=== PATIENT | female | born 1975 | race American Indian/Alaskan Native ===

== ENCOUNTER 2016-10-23 03:32 | Inpatient (IN) | payer OTHER ==
[2016-10-23 05:05] LABS: Mean Corpuscular HGB Conc 28 % (30-34); Platelet Count 806 K/mm3 (140-440); Red Blood Count 3.09 M/mm3 (3.65-5.03); White Blood Count 15.9 K/mm3 (4.5-11.0)
[2016-10-23 05:06] LABS: Mean Corpuscular Hemoglobin 17 pg (28-32); Mean Corpuscular Volume 60 fl (79-97); Red Cell Distribution Width 29.7 % (13.2-15.2)
[2016-10-23 05:11] LABS: Hematocrit 18.7 % (30.3-42.9); Hemoglobin 5.1 gm/dl (10.1-14.3)
[2016-10-23 05:26] LABS: Anion Gap 24 mmol/L; Blood Urea Nitrogen 14 mg/dL (7-17); Calcium 8.7 mg/dL (8.4-10.2); Carbon Dioxide 20 mmol/L (22-30); Chloride 95.4 mmol/L (98-107); Glucose 130 mg/dL (65-100); Potassium 3.5 mmol/L (3.6-5.0); Sodium 136 mmol/L (137-145)
[2016-10-23 06:43] LABS: Basophils % (Manual) 0 % (0.0-1.8); Blastocytes % (Manual) 0 %; Eosinophils % (Manual) 0 % (0.0-4.3); Hypochromasia 3+; Microcytosis 2+
[2016-10-23 06:44] LABS: Anisocytosis 3+; Elliptocytes Rare; Polychromasia Few; Stomatocytes Few
[2016-10-23 06:45] LABS: Diff Status Complete; Platelet Estimate Appears Increased
[2016-10-23] MEDS ORDERED: NACL 0.9% 1000 ML 1,000 ML IV ONE (08:48)
[2016-10-23] MEDS ORDERED: NACL 0.9% 500 ML 500 ML IV ONE (08:48)
--- NOTE | 2016-10-23 08:50 | Emergency Department Report ---
HPI - General Chief Complaint: Abdominal Pain Time Seen by Provider: 10/23/16 08:38 - HPI HPI: The patient is a 41-year-old female with a history of uterine fibroids and menorrhagia, who presents for evaluation of abdominal pain and generalized weakness. The patient reports severe lower abdominal pain, 10 out of 10 in severity, cramping and sharp in quality, for the past 4 days, worsening and constant since this morning, and associated with a days of vaginal bleeding. She typically has prolonged menstrual periods. She also says that she has experienced moderate to severe weakness and tiredness, exacerbated with exertion , improved with rest, also for the past week. The patient denies fever, cough, dyspnea, syncope, chest pain, hemoptysis, hematemesis, hematuria, blood in the stool, unilateral leg swelling, recent immobilization, history of DVT or PE. ED Past Medical Hx - Medications Home Medications: Home Medications Medication Instructions Recorded Confirmed Last Taken Type No Known Home Medications [No 10/23/16 10/23/16 Unknown History Reported Home Medications] ED Review of Systems ROS: Stated complaint: ABD PAIN/MENSTRUAL PAIN Other details as noted in HPI Constitutional: denies: fever ENT: denies: throat or neck pain Respiratory: denies: cough, shortness of breath Cardiovascular: denies: chest pain Endocrine: denies unexplained weight loss or gain Gastrointestinal: reports abdominal pain Genitourinary: Reports vaginal bleeding denies: dysuria Musculoskeletal: denies: leg swelling Skin: denies: rash Neurological: denies: headache Hematological/Lymphatic: denies: easy bleeding or easy bruising Psych: denies sadness or hopelessness Physical Exam - Physical Exam Vital Signs: Vital Signs 10/23/16 04:42 Temperature 98.5 F Pulse Rate 86 Respiratory 24 Rate Blood Pressure 153/94 O2 Sat by Pulse 98 Oximetry Physical Exam: General: well-nourished, well-developed, no acute distress Head: Normocephalic, atraumatic Eyes: normal sclera ENT: Mucous membranes are pink and moist Neck: trachea midline, neck supple, No neck stiffness, no cervical adenopathy Respiratory: Breath sounds equal bilaterally, no wheezing, rales, or rhonchi Cardio: S1 and S2 present, no murmurs, rubs, gallops, capillary refill is brisk Abdomen: Normoactive bowel sounds, soft abdomen, periumbilical and suprapubic tenderness to palpation present, no rigidity, no guarding or rebound tenderness Musc: No pitting edema Skin: No rash Neuro: no facial drooping, normal speech Psych: Normal affect ED Course Vital Signs 10/23/16 04:42 Temperature 98.5 F Pulse Rate 86 Respiratory 24 Rate Blood Pressure 153/94 O2 Sat by Pulse 98 Oximetry ED Medical Decision Making - Lab Data Result diagrams: 10/23/16 04:44 10/23/16 04:44 - Medical Decision Making The patient was seen and examined by myself. The patient is placed on a cardiac exercise specialist and continuous pulse ox. On initial evaluation, the patient was found to be in no distress. Evaluation orders were placed. The patient is given 1 L normal saline fluid bolus and IV fentanyl for pain. Lab results revealed low hemoglobin of 5.1, low hematocrit, and otherwise lab results are grossly not concerning. 2 units of PRBCs are ordered. The on-call hospitalist service was contacted. They agreed to admit the patient for further treatment and close monitoring. The ED admit order was placed. The patient was admitted in guarded condition. Critical care attestation.: If time is entered above; I have spent that time in minutes in the direct care of this critically ill patient, excluding procedure time. ED Disposition Clinical Impression: Anemia requiring transfusions, Severe anemia, Generalized weakness Disposition: OP ADMITTED IP TO THIS HOSP Is pt being admited?: Yes Does the pt Need Aspirin: No (bleeding and anemia) Condition: Serious Time of Disposition: 08:50
--- NOTE | 2016-10-23 08:58 | Admit Criteria Form ---
Admission Criteria Documentation: ANEMIA, IRON DEFICIENCY OR UNSPECIFIED Clinical Indications for Inpatient Care (Place 'X' for any and all applicable criteria): Admission is indicated for ANY ONE of the following(1)(2)(3)(4)(5)(6)(7): [X] I. Inpatient admission required rather than observation care (Also use Anemia, Iron Deficiency or Unspecified: Observation Care guideline as appropriate) because of ANY ONE of the following: [] a) Hemodynamic instability that is severe or persistent [] b) Active bleeding that cannot be rapidly controlled [] c) CVS symptoms (i.e., dyspnea, chest pain, heart failure) that are severe or persistent [] d) Neurologic symptoms (i.e., cognitive impairment, recurrent syncope or near syncope) that are severe or persistent [] e) Cardiac arrhythmias of immediate concern [] f) Acute peripheral ischemia (e.g., pulseless, cool, mottled, or cyanotic extremity) [] g) High-risk low platelet count [] h) Acute renal failure [X] i) Ongoing transfusion for blood loss (greater than 2 units) [] j) IV fluid to replace significant ongoing (eg, >24 hours) losses (> 3 L/m2 per day) [] k) Pulmonary artery catheter monitoring [] l) Supplemental oxygen or respiratory treatments for over 24 hours that are performable only in acute inpatient setting [] m) Immediate inpatient surgery [] n) Other condition, treatment or monitoring requiring inpatient admission [] II Active massive hemorrhage [] III. Active hemolysis with rapidly progressive anemia [A](6) Extended stay beyond goal length of stay may be needed for (17)(18) []a) Diagnosed cause of anemia requiring longer hospitalization (eg, active GI bleeding, immune hemolysis requiring electrophoresis, complications of malignancy requiring acute care []b) Continued emergent anemia indicators (23) []c) Transfusion reactions []d) Associated leukopenia or thrombocytopenia needing inpatient care []e) Active comorbidities (eg, renal failure, heart failure) The original [facility] Care Guidelines content created by [facility] Care Guidelines has been revised. The portions of the content which have been revised are identified through the use of italic text or in bold. [facility] Guidelines has neither reviewed nor approved the modified material. All other unmodified content is copyright [facility] Care Guidelines. Please see references footnoted in the original [facility] edition 2016 Admission Criteria Met: Yes
[2016-10-23] MEDS ORDERED: SUBLIMAZE IV ONE (09:43)
[2016-10-23 10:00] LABS: Bilirubin,Urine NEG (Negative); Blood,Urine NEG (Negative); Ketones,Urine NEG (Negative); Leukocyte Esterase,Urine NEG (Negative); Nitrite,Urine NEG (Negative); Protein,Urine <15 mg/dL mg/dL (Negative); RBC,Urine < 1.0 /HPF (0.0-6.0); Urobilinogen,Urine < 2.0 mg/dL (<2.0); WBC,Urine < 1.0 /HPF (0.0-6.0)
--- NOTE | 2016-10-23 10:02 | History and Physical Report ---
History of Present Illness Date of examination: 10/23/16 History of present illness: patient presents with heavy periods. has history of fibroids. Past History Past Medical History: other (obesity, uterine fibroids) Past Surgical History: Medications and Allergies Allergies Allergy/AdvReac Type Severity Reaction Status Date / Time No Known Allergies Allergy Unverified 10/23/16 03:56 Home Medications Medication Instructions Recorded Confirmed Last Taken Type No Known Home Medications [No 10/23/16 10/23/16 Unknown History Reported Home Medications] Exam - Constitutional Vitals: Temp Pulse Resp BP Pulse Ox 98.5 F 85 15 185/91 100 10/23/16 04:42 10/23/16 09:30 10/23/16 09:30 10/23/16 09:30 10/23/16 09:30 Results - Labs CBC & Chem 7: 10/24/16 05:49 10/24/16 05:49 Labs: Abnormal lab results 10/23/16 10/23/16 10/23/16 Range/Units 04:44 04:44 07:54 WBC 15.9 H (4.5-11.0) K/mm3 RBC 3.09 L (3.65-5.03) M/mm3 Hgb 5.1 L* (10.1-14.3) gm/dl Hct 18.7 L* (30.3-42.9) % MCV 60 L (79-97) fl MCH 17 L (28-32) pg MCHC 28 L (30-34) % RDW 29.7 H (13.2-15.2) % Plt Count 806 H (140-440) K/mm3 Seg Neuts % (Manual) 79.0 H (40.0-70.0) % Lymphocytes % (Manual) 13.0 L (13.4-35.0) % Monocytes % (Manual) 8.0 H (0.0-7.3) % Nucleated RBC % 3.0 H (0.0-0.9) % Seg Neutrophils # Man 12.6 H (1.8-7.7) K/mm3 Monocytes # (Manual) 1.3 H (0.0-0.8) K/mm3 Sodium 136 L (137-145) mmol/L Potassium 3.5 L (3.6-5.0) mmol/L Chloride 95.4 L (98-107) mmol/L Carbon Dioxide 20 L (22-30) mmol/L Glucose 130 H (65-100) mg/dL Crossmatch See Detail Assessment and Plan Severe anemia due to acute and chronic blood loss from fibroids. Admit. Transfuse PRBC
[2016-10-23] MEDS ORDERED: ZOFRAN IV ONE (10:10)
[2016-10-23] MEDS ORDERED: ZOFRAN ONE (10:11)
[2016-10-23] MEDS ORDERED: ZOFRAN IV PRN (10:16)
[2016-10-23] MEDS ORDERED: DULCOLAX PR PRN (10:16)
[2016-10-23] MEDS ORDERED: TYLENOL PO PRN (10:16)
[2016-10-23] MEDS ORDERED: MILK OF MAGNESIA PO PRN (10:16)
[2016-10-23 10:47] LABS: INR 1.07 (0.87-1.13)
[2016-10-23 10:48] LABS: Partial Thromboplastin Time 22.3 Sec. (24.2-36.6)
[2016-10-23 11:24] LABS: Alanine Aminotransferase 6 units/L (7-56); Albumin 3.5 g/dL (3.9-5); Albumin/Globulin Ratio 0.9 %; Alkaline Phosphatase 59 units/L (35-129); Bilirubin,Direct < 0.2 mg/dL (0-0.2); Bilirubin,Total 0.2 mg/dL (0.1-1.2); Total Protein 7.2 g/dL (6.3-8.2)
--- NOTE | 2016-10-23 13:24 | XRay Report ---
Portable abdominal series: The the lungs are clear. The heart is difficult to assess but could be slightly enlarged. There is no vascular congestion. The right flank is incompletely included on the study. The visualized bowel gas pattern is unremarkable. There is no free air. There is no soft tissue mass or abnormal soft tissue calcification appreciated. Impression: Limited quality study with no abnormality noted.
[2016-10-23] MEDS: MORPHINE IV PRN (19:08)
[2016-10-23 20:32] LABS: Hemoglobin 6.8 gm/dl (10.1-14.3)
[2016-10-23 20:33] LABS: Hematocrit 22.4 % (30.3-42.9)
[2016-10-24] MEDS: MORPHINE IV PRN ×2 (01:25→09:22)
[2016-10-24 06:26] LABS: Hematocrit 22.7 % (30.3-42.9); Hemoglobin 6.8 gm/dl (10.1-14.3); Mean Corpuscular HGB Conc 30 % (30-34); Platelet Count 589 K/mm3 (140-440); Red Blood Count 3.45 M/mm3 (3.65-5.03); White Blood Count 9.5 K/mm3 (4.5-11.0)
[2016-10-24 06:28] LABS: Blood Urea Nitrogen 10 mg/dL (7-17); Calcium 8.2 mg/dL (8.4-10.2); Carbon Dioxide 26 mmol/L (22-30); Chloride 101.8 mmol/L (98-107); Glucose 102 mg/dL (65-100); Potassium 4.1 mmol/L (3.6-5.0); Sodium 139 mmol/L (137-145)
[2016-10-24 06:29] LABS: Anion Gap 15 mmol/L
[2016-10-24 06:35] LABS: Mean Corpuscular Hemoglobin 20 pg (28-32); Red Cell Distribution Width 29.8 % (13.2-15.2)
[2016-10-24 06:36] LABS: Mean Corpuscular Volume 66 fl (79-97)
[2016-10-24] MEDS ORDERED: NACL 0.9% 500 ML IV STA (07:41)
[2016-10-24] MEDS ORDERED: NACL 0.9% 250ML 250 ML ONE (07:46)
[2016-10-24 09:12] LABS: Anisocytosis 3+; Basophils % (Manual) 0 % (0.0-1.8); Blastocytes % (Manual) 0 %; Hypochromasia 3+; Microcytosis 2+; Polychromasia Few
[2016-10-24 09:13] LABS: Diff Status Complete; Elliptocytes Rare; Platelet Estimate Appears Increased; Stomatocytes Few
[2016-10-24] MEDS: NACL 0.9% 500 ML 500 ML IV ONE ×2 (09:23→09:24)
[2016-10-24 14:37] VITALS: BP 167/77
--- NOTE | 2016-10-24 16:23 | Discharge Summary ---
Providers - Providers Date of Admission: 10/23/16 10:16 Date of discharge: 10/24/16 Attending physician: JONATHAN WITT 10/24/16 08:32 Consult to Physician [CONS] Routine Consulting Provider: MEL SKAGGS Reason For Exam: menometrorrhagia,fibroids Place consult to:: Dr. Paul Skaggs Primary care physician: CONCRETE ENGINEERING TECHNICIAN Hospitalization Condition: Good Disposition: DISCHARGED TO HOME OR SELFCARE - Discharge Diagnoses (1) Severe anemia Status: Acute (2) Abnormal uterine bleeding Status: Acute (3) Uterine fibroid Status: Acute (4) Menometrorrhagia Status: Acute (5) Anemia due to acute blood loss Status: Acute Core Measure Documentation - Palliative Care Palliative Care/ Comfort Measures: Not Applicable - Core Measures Any of the following diagnoses?: none Exam - Constitutional Vitals: Temp Pulse Resp BP Pulse Ox 99.1 F 82 20 167/77 98 10/24/16 14:32 10/24/16 14:32 10/24/16 14:32 10/24/16 14:32 10/24/16 07:35 Plan Activity: no restrictions Diet: low fat, low cholesterol, low salt Additional Instructions: 1. Follow-up with primary care physician in one week. 2. Follow-up with Dr. Mel Skaggs in 3-5 days Follow up with: PRIMARY CARE, [Primary Care Provider] - 3-5 Days Prescriptions: Docusate Sodium [Colace] 100 mg PO BID #60 capsule Ferrous Sulfate [Feosol 325 MG tab] 325 mg PO BID #60 tablet
[2016-10-24 17:57] LABS: Hematocrit 28.1 % (30.3-42.9); Hemoglobin 8.7 gm/dl (10.1-14.3); Mean Corpuscular HGB Conc 31 % (30-34); Mean Corpuscular Volume 69 fl (79-97); Platelet Count 536 K/mm3 (140-440); Red Blood Count 4.05 M/mm3 (3.65-5.03); White Blood Count 10.1 K/mm3 (4.5-11.0)
[2016-10-24 17:58] LABS: Mean Corpuscular Hemoglobin 21 pg (28-32); Red Cell Distribution Width 29.1 % (13.2-15.2)
[2016-10-24 19:07] LABS: Basophils % (Manual) 0 % (0.0-1.8); Blastocytes % (Manual) 0 %
[2016-10-24 19:08] LABS: Anisocytosis 3+; Diff Status Complete; Hypochromasia 2+; Microcytosis 1+; Platelet Estimate Consistent w Auto
== END 2016-10-24 18:45 | disposition home or self-care (01) | DRG 760 ==
LOC: ED 03:32 → 3A 10:16
PROVIDERS: ADMIT Internal Medicine; ATTEND Internal Medicine
PROC: 30233N1 Transfusion of Nonautologous Red Blood Cells into Peripheral Vein, Percutaneous Approach (ICD-10-PCS; principal; 2016-10-23)
PROC: 30233N1 Transfusion of Nonautologous Red Blood Cells into Peripheral Vein, Percutaneous Approach (ICD-10-PCS; 2016-10-24)
DX: D25.9 Leiomyoma of uterus, unspecified (principal); D62 Acute posthemorrhagic anemia; Z68.42 Body mass index [BMI] 45.0-49.9, adult; E66.9 Obesity, unspecified; N92.1 Excessive and frequent menstruation with irregular cycle; Z98.890 Other specified postprocedural states
CPT/HCPCS: 36415; 74022; 80048; 80074; 81001; 81025; 83690; 85007; 85014; 85018; 85025; 85610; 85730; 86850; 86900; 86901; 86920; 96374; 96375; J2270; J2405; J3010; J7040; J7050; P9016

== ENCOUNTER 2017-01-14 12:20 | Inpatient (IN) | payer OTHER ==
[2017-01-14 13:18] LABS: Mean Corpuscular HGB Conc 29 % (30-34); Mean Corpuscular Volume 70 fl (79-97); Platelet Count 600 K/mm3 (140-440); Red Blood Count 3.97 M/mm3 (3.65-5.03); White Blood Count 12.1 K/mm3 (4.5-11.0)
[2017-01-14 13:22] LABS: Hematocrit 27.9 % (30.3-42.9); Hemoglobin 8.1 gm/dl (10.1-14.3); Mean Corpuscular Hemoglobin 21 pg (28-32); Red Cell Distribution Width 27.7 % (13.2-15.2)
[2017-01-14 13:29] LABS: Anion Gap 21 mmol/L; BUN/Creatinine Ratio 14.28; Blood Urea Nitrogen 10 mg/dL (7-17); Calcium 8.9 mg/dL (8.4-10.2); Carbon Dioxide 20 mmol/L (22-30); Chloride 100.7 mmol/L (98-107); Glucose 121 mg/dL (65-100); Lipase 23 units/L (13-60); Potassium 3.9 mmol/L (3.6-5.0); Sodium 138 mmol/L (137-145)
[2017-01-14 13:56] LABS: Anisocytosis 2+; Basophils % (Manual) 0 % (0.0-1.8); Blastocytes % (Manual) 0 %; Elliptocytes Few; Hypochromasia 2+; Microcytosis 1+; Ovalocytes 1+; Poikilocytosis 1+; Spherocytes 1+; Tear Drop Cells Rare
[2017-01-14 13:57] LABS: Diff Status Complete; Platelet Estimate Appears Increased
[2017-01-14] MEDS ORDERED: DILAUDID IV ONE (16:38)
[2017-01-14] MEDS ORDERED: ZOFRAN IV ONE ×2 (16:38→17:53)
[2017-01-14] MEDS ORDERED: TORADOL IV ONE (16:38)
--- NOTE | 2017-01-14 16:44 | Emergency Department Report ---
ED Female HPI - General Chief complaint: Abdominal Pain Stated complaint: ANEMIA/VAG BLEEDING/WEAK Time Seen by Provider: 01/14/17 16:10 Source: patient, old records reviewed Mode of arrival: Wheelchair Limitations: No Limitations - History of Present Illness Initial comments: 41-year-old female with a past medical history uterine fibroids and menorrhagia , iron deficiency anemia, previous blood transfusions, and hypertension presents to the hospital complaining of vaginal bleeding. Patient started bleeding yesterday. She states she's had to use at least 3 pads per hour. Please have a 9/10 and intermittent suprapubic abdominal pain described as labor pains. No aggravating or alleviating factors reported. Patient is having dyspnea on exertion, lightheadedness, and dizziness similar to what she required blood transfusion in the past. Patient has been admitted here in October and November for menorrhagia and anemia requiring blood transfusions. Hysterectomy has been recommended by her [employer]ARK[employer] doctor Dr. Tom Skaggs. Pt is taking iron tablets once daily but states she has run out. She was not able to tolerate BID dosing. - Related Data Previous Rx's Medication Instructions Recorded Last Taken Type Docusate Sodium [Colace] 100 mg PO BID #60 capsule 10/24/16 Unknown Rx Ferrous Sulfate [Feosol 325 MG tab] 325 mg PO BID #60 tablet 10/24/16 Unknown Rx Hydrochlorothiazide [HCTZ] 25 mg PO QDAY #30 tablet 12/05/16 Unknown Rx Allergies Allergy/AdvReac Type Severity Reaction Status Date / Time No Known Allergies Allergy Unverified 10/23/16 03:56 ED Review of Systems ROS: Stated complaint: ANEMIA/VAG BLEEDING/WEAK Other details as noted in HPI Comment: All other systems reviewed and negative Other: Constitutional: No fevers chills Eyes: No eye pain visual changes ENT: No ear pain or throat pain Neck: Denies pain Respiratory: Denies cough wheezing Cardiovascular: Denies chest pain, palpitations GI: Denies abdominal pain, nausea, vomiting, diarrhea : Denies dysuria Musculoskeletal: Denies back pain Skin: Denies rash, lesions, erythema Neurologic: Denies numbness Psychiatric: Denies suicidal ideation, hallucinations ED Past Medical Hx - Past Medical History Hx Hypertension: Yes Hx CVA: No Hx Congestive Heart Failure: No Hx Diabetes: No Hx Asthma: No Hx COPD: No Hx HIV: No Additional medical history: uterine fibroids, uterine cysts. anemia - Surgical History Additional Surgical History: x 3 - Social History Smoking Status: Never Smoker Substance Use Type: Alcohol - Medications Home Medications: Home Medications Medication Instructions Recorded Confirmed Last Taken Type Docusate Sodium [Colace] 100 mg PO BID #60 capsule 10/24/16 01/14/17 Unknown Rx Ferrous Sulfate [Feosol 325 MG tab] 325 mg PO BID #60 tablet 10/24/16 01/14/17 Unknown Rx Hydrochlorothiazide [HCTZ] 25 mg PO QDAY #30 tablet 12/05/16 01/14/17 Unknown Rx ED Physical Exam - General Limitations: No Limitations - Other Other exam information: General: No limitations, patient is alert in no acute distress Head exam: Atraumatic, normocephalic Eyes exam: Normal appearance ENT: Moist mucous membrane, normal oropharynx Neck exam: Normal inspection, full range of motion, Respiratory exam: Clear to auscultation bilateral, no wheezes, rales, crackles Cardiovascular: Normal rate and rhythm, normal heart sounds Abdomen: Soft, nondistended, and nontender, with normal bowel sounds, no rebound, or guarding Extremity: Full range of motion normal inspection no deformity Back: Normal Inspection, full range of motion, no tenderness Neurologic: Alert, oriented x3, cranial nerves intact, no motor or sensory deficit Psychiatric: normal affect, normal mood Skin: Warm, dry, intact ED Course Vital Signs 01/14/17 01/14/17 01/14/17 12:31 15:30 15:31 Temperature 98.8 F 98.1 F Pulse Rate 95 H 85 Respiratory 22 16 16 Rate Blood Pressure 134/85 Blood Pressure 134/75 [Right] O2 Sat by Pulse 100 98 100 Oximetry 01/14/17 01/14/17 01/14/17 18:06 19:29 21:15 Temperature 98 F 98 F Pulse Rate 80 88 Respiratory 18 20 18 Rate Blood Pressure Blood Pressure 143/73 168/98 132/77 [Right] O2 Sat by Pulse 100 100 Oximetry - Reevaluation(s) Reevaluation #1: 01/14/17 17:35 Pt given Dilaudid, Toradol, and Zofran for pain 01/14/17 17:35 Reevaluation #2: 01/14/17 18:27 Patient develop nausea, hot feeling, and sweating after Dilaudid. Vital signs repeated and unremarkable Additional Zofran ordered. - Consultations Consultation #1: 01/14/17 17:[address] Tom Skaggs. He has agreed to admit the patient for blood transfusion ED Medical Decision Making - Lab Data Result diagrams: 01/14/17 12:56 01/14/17 12:56 Lab Results 01/14/17 01/14/17 01/14/17 Range/Units 12:56 12:56 12:56 WBC 12.1 H (4.5-11.0) K/mm3 RBC 3.97 (3.65-5.03) M/mm3 Hgb 8.1 L (10.1-14.3) gm/dl Hct 27.9 L (30.3-42.9) % MCV 70 L (79-97) fl MCH 21 L (28-32) pg MCHC 29 L (30-34) % RDW 27.7 H (13.2-15.2) % Plt Count 600 H (140-440) K/mm3 Add Manual Diff Complete Total Counted 100 Seg Neuts % (Manual) 76.0 H (40.0-70.0) % Band Neutrophils % 1.0 % Lymphocytes % (Manual) 17.0 (13.4-35.0) % Reactive Lymphs % (Man) 0 % Monocytes % (Manual) 5.0 (0.0-7.3) % Eosinophils % (Manual) 1.0 (0.0-4.3) % Basophils % (Manual) 0 (0.0-1.8) % Metamyelocytes % 0 % Myelocytes % 0 % Promyelocytes % 0 % Blast Cells % 0 % Nucleated RBC % Not Reportable Seg Neutrophils # Man 9.2 H (1.8-7.7) K/mm3 Band Neutrophils # 0.1 K/mm3 Lymphocytes # (Manual) 2.1 (1.2-5.4) K/mm3 Abs React Lymphs (Man) 0.0 K/mm3 Monocytes # (Manual) 0.6 (0.0-0.8) K/mm3 Eosinophils # (Manual) 0.1 (0.0-0.4) K/mm3 Basophils # (Manual) 0.0 (0.0-0.1) K/mm3 Metamyelocytes # 0.0 K/mm3 Myelocytes # 0.0 K/mm3 Promyelocytes # 0.0 K/mm3 Blast Cells # 0.0 K/mm3 WBC Morphology Not Reportable Hypersegmented Neuts Not Reportable Hyposegmented Neuts Not Reportable Hypogranular Neuts Not Reportable Smudge Cells Not Reportable Toxic Granulation Not Reportable Toxic Vacuolation Not Reportable Dohle Bodies Not Reportable Pelger-Huet Anomaly Not Reportable Jefry Rods Not Reportable Platelet Estimate Appears increased Clumped Platelets Not Reportable Plt Clumps, EDTA Not Reportable Large Platelets Not Reportable Giant Platelets Not Reportable Platelet Satelliting Not Reportable Plt Morphology Comment Not Reportable RBC Morphology Not Reportable Dimorphic RBCs Yes Polychromasia Not Reportable Hypochromasia 2+ Poikilocytosis 1+ Anisocytosis 2+ Microcytosis 1+ Macrocytosis Not Reportable Spherocytes 1+ Pappenheimer Bodies Not Reportable Sickle Cells Not Reportable Target Cells Not Reportable Tear Drop Cells Rare Ovalocytes 1+ Helmet Cells Not Reportable Engel-La [place] Bodies Not Reportable [place] Rings Not Reportable [place] Cells Not Reportable Bite Cells Not Reportable Crenated Cell Not Reportable Elliptocytes Few Acanthocytes (Spur) Not Reportable Rouleaux Not Reportable Hemoglobin C Crystals Not Reportable Schistocytes Not Reportable Malaria parasites Not Reportable Hans Bodies Not Reportable Hem Pathologist Commnt No Sodium 138 (137-145) mmol/L Potassium 3.9 (3.6-5.0) mmol/L Chloride 100.7 (98-107) mmol/L Carbon Dioxide 20 L (22-30) mmol/L Anion Gap 21 mmol/L BUN 10 (7-17) mg/dL Creatinine 0.7 (0.7-1.2) mg/dL Estimated GFR > 60 ml/min BUN/Creatinine Ratio 14.28 % Glucose 121 H (65-100) mg/dL Calcium 8.9 (8.4-10.2) mg/dL Iron (37-170) ug/dL TIBC (250-450) mcg/dL % Saturation % Transferrin (192-382) mg/dl Lipase 23 (13-60) units/L HCG, Quant < 2 (0-4) mIU/mL Blood Type Antibody Screen 01/14/17 01/14/17 Range/Units 12:56 12:57 WBC (4.5-11.0) K/mm3 RBC (3.65-5.03) M/mm3 Hgb (10.1-14.3) gm/dl Hct (30.3-42.9) % MCV (79-97) fl MCH (28-32) pg MCHC (30-34) % RDW (13.2-15.2) % Plt Count (140-440) K/mm3 Add Manual Diff Total Counted Seg Neuts % (Manual) (40.0-70.0) % Band Neutrophils % % Lymphocytes % (Manual) (13.4-35.0) % Reactive Lymphs % (Man) % Monocytes % (Manual) (0.0-7.3) % Eosinophils % (Manual) (0.0-4.3) % Basophils % (Manual) (0.0-1.8) % Metamyelocytes % % Myelocytes % % Promyelocytes % % Blast Cells % % Nucleated RBC % Seg Neutrophils # Man (1.8-7.7) K/mm3 Band Neutrophils # K/mm3 Lymphocytes # (Manual) (1.2-5.4) K/mm3 Abs React Lymphs (Man) K/mm3 Monocytes # (Manual) (0.0-0.8) K/mm3 Eosinophils # (Manual) (0.0-0.4) K/mm3 Basophils # (Manual) (0.0-0.1) K/mm3 Metamyelocytes # K/mm3 Myelocytes # K/mm3 Promyelocytes # K/mm3 Blast Cells # K/mm3 WBC Morphology Hypersegmented Neuts Hyposegmented Neuts Hypogranular Neuts Smudge Cells Toxic Granulation Toxic Vacuolation Dohle Bodies Pelger-Huet Anomaly Jefry Rods Platelet Estimate Clumped Platelets Plt Clumps, EDTA Large Platelets Giant Platelets Platelet Satelliting Plt Morphology Comment RBC Morphology Dimorphic RBCs Polychromasia Hypochromasia Poikilocytosis Anisocytosis Microcytosis Macrocytosis Spherocytes Pappenheimer Bodies Sickle Cells Target Cells Tear Drop Cells Ovalocytes Helmet Cells Engel-La [place] Bodies [place] Rings Kiesha Cells Bite Cells Crenated Cell Elliptocytes Acanthocytes (Spur) Rouleaux Hemoglobin C Crystals Schistocytes Malaria parasites Hans Bodies Hem Pathologist Commnt Sodium (137-145) mmol/L Potassium (3.6-5.0) mmol/L Chloride (98-107) mmol/L Carbon Dioxide (22-30) mmol/L Anion Gap mmol/L BUN (7-17) mg/dL Creatinine (0.7-1.2) mg/dL Estimated GFR ml/min BUN/Creatinine Ratio % Glucose (65-100) mg/dL Calcium (8.4-10.2) mg/dL Iron 12 L (37-170) ug/dL TIBC 432 (250-450) mcg/dL % Saturation 2.78 % Transferrin 388 H (192-382) mg/dl Lipase (13-60) units/L HCG, Quant (0-4) mIU/mL Blood Type O POSITIVE Antibody Screen Negative - Medical Decision Making Although hemoglobin is 8.1 pt she insists that she is symptomatic. For this reason she'll be admitted and transfused. Patient also has significantly low iron and perhaps may benefit from outpatient iron infusions. Patient to be admitted to Dr. Skaggs service - Differential Diagnosis menorrhagia, , anemia, fibroids Critical Care Time: No Critical care attestation.: If time is entered above; I have spent that time in minutes in the direct care of this critically ill patient, excluding procedure time. ED Disposition Clinical Impression: Anemia requiring transfusions, Intramural leiomyoma of uterus, Menometrorrhagia , Morbid obesity with BMI of 45.0-49.9, adult, Iron deficiency anemia Disposition: OP ADMITTED IP TO THIS HOSP Is pt being admited?: Yes Condition: Stable Time of Disposition: 17:36 (Dr Airam Skaggs/calculus professor)
[2017-01-14] MEDS ORDERED: COLACE PO PRN (17:33)
[2017-01-14] MEDS ORDERED: TYLENOL PO ONE (17:33)
--- NOTE | 2017-01-14 17:33 | Short Stay Summary ---
Short Stay Documentation Date of service: 01/14/17 Narrative H&P: Pt is a 41-year-old BF with a history of fibroids and menorrhagia presents to [facility] ER with complaints of dizziness, weakness, and orthostatic symptoms, but she denies shortness of breath. This is her third admission for symptomatic anemia, she is status post admission on 12/04/2016 for similar complaint and received a blood transfusion. Today her H/H is 8.1/27.9 She has being worked up for hysterectomy and had sonogram showing the uterus to be 12 cm with a large submucosal fibroid measuring 5 x 4 cm within the endometrial lining. She will therefore be admitted for another blood transfusion until her surgery can be scheduled. - History Principal diagnosis: Symptomatic anemia H&P: obtained from office Past Medical History: anemia, hypertension, other (Obesity; Fibroids) Past Surgical History: (x3), Other (BTL) Social history: no significant social history, - Allergies and Medications Current Medications: Allergies No Known Allergies Allergy (Unverified 10/23/16 03:56) Home Medications Medication Instructions Recorded Confirmed Last Taken Type Docusate Sodium [Colace] 100 mg PO BID #60 capsule 10/24/16 01/14/17 Unknown Rx Ferrous Sulfate [Feosol 325 MG tab] 325 mg PO BID #60 tablet 10/24/16 01/14/17 Unknown Rx Hydrochlorothiazide [HCTZ] 25 mg PO QDAY #30 tablet 12/05/16 01/14/17 Unknown Rx - Physical exam General appearance: mild distress Integumentary: no rash Lungs: Clear to auscultation Breasts: deferred Heart: Regular rate Gastrointestinal: normal Female Genitourinary: deferred Rectal Exam: deferred Extremities: No edema Neurological: Normal gait - Hospital course Hospital course: Pt was admitted and received 2 units of blood raising her H/H from 8.1/27.9 up to 8.7/28.9 She required 1 more unit and was feeling much better after that. She will therefore be discharged to home, to follow up in the office to schedule her surgery. - Disposition Condition at discharge: Good Disposition: DISCHARGED TO HOME OR SELFCARE - Discharge Diagnoses (1) Intramural leiomyoma of uterus Status: Resolved (2) Menometrorrhagia Status: Chronic (3) Anemia due to acute blood loss Status: Acute (4) Symptomatic anemia Status: Chronic Short Stay Discharge Plan Activity: no restrictions Diet: regular Follow up with: PRIMARY CARE, [Primary Care Provider] - 3-5 Days MEL PADRON MD [Staff Physician] - 7 Days Prescriptions: Ferrous Sulfate [Feosol 325 MG tab] 325 mg PO BID #60 tablet medroxyPROGESTERone ACETATE [Provera] 10 mg PO QDAY #10 tablet oxyCODONE /ACETAMINOPHEN [Percocet 5/325 mg] 1 tab PO Q4H PRN #20 tablet PRN Reason: Pain, Moderate (4-6)
[2017-01-14 17:45] LABS: Bacteria,Urine 1+ /HPF (Negative); Bilirubin,Urine NEG (Negative); Blood,Urine LG (Negative); Ketones,Urine TR mg/dL (Negative); Leukocyte Esterase,Urine NEG (Negative); Mucus,Urine 3+ /HPF; Nitrite,Urine NEG (Negative); Urobilinogen,Urine < 2.0 mg/dL (<2.0)
[2017-01-14 17:47] LABS: RBC,Urine > 182.0 /HPF (0.0-6.0)
[2017-01-14] MEDS ORDERED: BENADRYL IV ONE (18:00)
[2017-01-14] MEDS ORDERED: LACTATED RINGERS 1,000 ML IV SCH (18:00)
--- NOTE | 2017-01-14 18:13 | Admit Criteria Form ---
Admission Criteria Documentation: OBSTETRIC AND GYNECOLOGIC DISEASE GRG Clinical Indications for Admission to Inpatient Care (Place 'X' for any and all applicable criteria): Hospital admission is needed for appropriate care of the patient because of ANY ONE of the following (1)(2)(3): [ ]I. Hemodynamic instability, as indicated by ALL of the following (1)(2)(3)( 4)(5): [ ]a) Vital signs or other findings not as expected for chronic patient condition or baseline [ ]b) Instability indicated by ANY ONE of the following: [ ]i) Hypotension [ ]ii) Symptomatic tachycardia unresponsive to treatment (eg, analgesia, fluids, sedation as indicated) [ ]iii) Inadequate perfusion indicated by ANY ONE of the following: [ ]A. Lactic acidosis (greater than 2 mmol/ L) [ ]B. New abnormal capillary refill ( greater than 3 seconds) [ ]C. Reduced urine output [ ]D. New altered mental status [ ]iv) Orthostatic vital sign changes unresponsive to treatment (eg, fluids) [ ]v) Multiple IV fluid boluses required to maintain adequate blood pressure or perfusion [ ]vi) IV inotropic or vasopressor medication required to maintain adequate blood pressure or perfusion [ ]II. Obstetric infection requiring hospitalization indicated by ANY ONE of the following(13)(14): [ ]a) Chorioamnionitis [ ]b) Endometritis (except mild endometritis) [ ]c) Pelvic abscess [ ]d) Peritonitis [ ]e) Septic pelvic thrombophlebitis [ ]III. Amniotic fluid or pulmonary embolism(4)(5)(6) [ ]IV. Suspected peritonitis or ectopic requiring monitoring beyond scope of 24 hours or observation care(7)(8) [ ]V. compromise requiring hospitalization indicated by ALL of the following(9)(10): [ ]a) compromise indicated by ANY ONE of the following(11): [ ]i) Abnormal heart rate monitoring [ ]ii) Abnormal contraction stress test [ ]iii) Abnormal biophysical profile [ ]iv) Abnormal Doppler flow in vessels (ie, Doppler velocimetry) (12) [ ]b) Persistence of compromise indicators during evaluation and observation monitoring [ ]. Ovarian hyperstimulation syndrome requiring hospitalization[A] indicated by ALL of the following(15): [ ]a) Recent ovarian stimulation with gonadotropins, or evidence on ultrasound of spontaneous emergence of large number of ovarian follicles [ ]b) Evidence of severe ovarian hyperstimulation syndrome indicated by ANY ONE of the following: [ ]i) Abdominal pain unresponsive to oral therapy [ ]ii) Acute respiratory distress syndrome [ ]iii) Electrolyte imbalance ( eg, hyponatremia, hyperkalemia) [ ]iv) Elevated liver enzymes [ ]v) Evidence of thromboembolism [ ]vi) Hemoconcentration (hematocrit greater than 45 % (0.45)) [ ]vii) Inability to maintain oral intake adequate to prevent hemoconcentration [ ]viii) Marked hypotension from baseline (eg, SBP 20 mmHg below patients usual pressure) [ ]ix) Oliguria or anuria [ ]x) Ovarian torsion [ ]xi) Pleural or pericardial effusion on x-ray or echocardiogram [ ]xii) Rapid increase in serum creatinine to greater than 1.2 mg/dL (106 micromoles/L) or creatinine clearance less than 50 mL/min/1.73m2 (0.84 mL/ sec/1.73m2) [ ]xiii) Ruptured ovarian cyst with hemorrhage [ ]xiv) Severe abdominal pain or peritoneal signs [ ]xv) Tense ascites that cannot be managed with paracentesis in outpatient setting [ ]VII.Pelvic infection requiring hospitalization indicated by ANY ONE of the following (16): [ ]a) Outpatient treatment has failed or is not appropriate (eg, inpatient monitoring required) [ ]b) Pelvic abscess [ ]c) Surgical emergency cannot be excluded (eg, rigid abdomen) [ ]d) Vomiting precluding outpatient and observation care management VIII. loss complications requiring inpatient medical treatment indicated by ANY ONE of the following (4)(7)(9): [ ]a) Fever [ ]b) Peritonitis [ ]c) Sepsis [ ]d) Severe abdominal pain [ ]IX. or patient requiring monitoring for severe heart failure, pulmonary disease, or other comorbid condition (eg, peripartum cardiomyopathy) (4)(17) [ ]X. patient with rupture of membranes requiring hospitalization indicated by ANY ONE of the following: [ ]a) Chorioamnionitis, cloudy amniotic fluid, or other evidence of infection [ ]b) compromise or other need for monitoring (11) [ ]c) Gestation longer than 23 weeks and ANY ONE of the following: [ ]i) Abnormal (noncephalic) presentation [ ]ii) Inadequate home environment (eg, home too far from hospital, unable to rapidly return to hospital) [ ]d) Temperature greater than 100.4 degrees F (38 degrees C)( oral) [ ]e) Threatened labor requiring monitoring beyond scope (eg, over 24 hours) of observation Care [ ] XI. complications, including severe lacerations, infections, or retained placenta (19) [X ] XII.Uterine bleeding with high-risk features indicated by ANY ONE of the following (4): [ ]a) Active major hemorrhage (eg, hemorrhage) [ ]b) Coagulopathy with active bleeding [ ]c) Gestational trophoblastic disease (eg, molar ) (20 ) [ ]d) (longer than 23 weeks) and ANY ONE of the following: [ ]i) Pain [ ]ii) Placental abruption, known or suspected [ ]iii) Placenta accrete, known or suspected(21) [ ]iv) Placenta previa, known or suspected [ ]v) Vasa previa [ X]e) Severe anemia [ ]XIII. Obstetric or Gynecologic Disease, condition or symptom for which ANY ONE of the following: [ ]a) Emergency and observation care have failed or are not considered appropriate ( Also use General Criteria: Observation Care Criteria as appropriate) [ ]b) Presence of a General Admission Criteria or Pediatric General Admission Criteria The original [facility] [employer] content [facility] by [facility] has been revised. The portions of the content which have been revised are identified through the use of italic text or in bold, and [facility] has neither reviewed nor approved the modified material.All other unmodified content is copyright [facility]. Please see references footnoted in the original [facility] edition 2016 Admission Criteria Met: Yes
[2017-01-14] MEDS ORDERED: NACL 0.9% 500 ML 500 ML IV ONE (18:30)
[2017-01-14] MEDS ORDERED: REGLAN IV ONE (18:50)
[2017-01-14] MEDS ORDERED: REGLAN ONE (18:57)
[2017-01-14] MEDS ORDERED: NACL 0.9% 500 ML 500 ML ONE (20:03)
[2017-01-14] MEDS: TYLENOL PO PRN (23:03)
[2017-01-14] MEDS ORDERED: PERCOCET 5/325 PO PRN (23:23)
[2017-01-14] MEDS: PERCOCET 5/325 PO PRN (23:47)
[2017-01-15] MEDS: PERCOCET 5/325 PO PRN (07:43)
[2017-01-15 09:39] LABS: Hematocrit 28.9 % (30.3-42.9); Hemoglobin 8.8 gm/dl (10.1-14.3)
[2017-01-15] MEDS ORDERED: PROVERA PO SCH (10:00)
[2017-01-15] MEDS ORDERED: PRENATAL VITAMIN PO SCH (10:00)
[2017-01-15] MEDS ORDERED: NACL 0.9% 500 ML 500 ML IV NR (11:30)
[2017-01-15] MEDS ORDERED: HCTZ PO SCH (12:00)
[2017-01-15] MEDS ORDERED: PREMARIN IV ONE (12:30)
[2017-01-15] MEDS ORDERED: WATER FOR INJ (PF) 10 ML ONE (14:03)
[2017-01-15] MEDS: TYLENOL PO PRN (14:11)
[2017-01-15 19:25] VITALS: BP 175/95
== END 2017-01-15 19:30 | disposition home or self-care (01) | DRG 760 ==
LOC: ED 12:20 → OB 17:33
PROVIDERS: ADMIT Obstetrics & Gynecology; ATTEND Obstetrics & Gynecology
PROC: 30233N1 Transfusion of Nonautologous Red Blood Cells into Peripheral Vein, Percutaneous Approach (ICD-10-PCS; principal; 2017-01-14)
DX: D25.1 Intramural leiomyoma of uterus (principal); D62 Acute posthemorrhagic anemia; Z68.42 Body mass index [BMI] 45.0-49.9, adult; Z68.45 Body mass index [BMI] 70 or greater, adult; N93.9 Abnormal uterine and vaginal bleeding, unspecified; R53.1 Weakness; I10 Essential (primary) hypertension; E66.01 Morbid (severe) obesity due to excess calories; N92.1 Excessive and frequent menstruation with irregular cycle; Z98.891 History of uterine scar from previous surgery
CPT/HCPCS: 36415; 80048; 81001; 81025; 83550; 83690; 84702; 85007; 85014; 85018; 85025; 86850; 86900; 86901; 86920; 96374; 96375; J1170; J1200; J1410; J1885; J2405; J2765; J7040; P9016

== ENCOUNTER 2017-02-11 08:58 | Inpatient (IN) | payer OTHER ==
--- NOTE | 2017-02-06 13:35 | Anesthesia Consultation ---
Anesthesia Consult and Med Hx Date of service: 02/06/17 - Airway Anesthetic Teeth Evaluation: Good, Chipped (#25) ROM Head & Neck: Adequate Mental/Hyoid Distance: Adequate Mallampati Class: Class III Intubation Access Assessment: Possibly Difficult - Pre-Operative Health Status ASA Pre-Surgery Classification: ASA3 Proposed Anesthetic Plan: General Nerve Block: TAP - Pulmonary Hx Smoking: Yes (smoked for 2 months, quit 2 months ago) Hx Asthma: No COPD: No Hx Pneumonia: No Hx Sleep Apnea: Yes (undiagnosed) - Cardiovascular System Hx Hypertension: Yes (x 10 yrs) Hx Coronary Artery Disease: No Hx Heart Attack/AMI: No Hx Angina: No Hx Percutaneous Transluminal Coronary Angioplasty (PTCA): No Hx Pacemaker: No Hx Internal Defibrillator: No Hx Valvular Heart Disease: No Hx Heart Murmur: No Hx Peripheral Vascular Disease: No - Central Nervous System Hx Psychiatric Problems: Yes (anxiety) - Gastrointestinal Hx Gastroesophageal Reflux Disease: Yes - Endocrine Hx End Stage Renal Disease: No - Hematic Hx Anemia: Yes - Other Systems Hx Alcohol Use: Yes (occas) Hx Cancer: No Hx Obesity: Yes (Morbid obesity, BMI 52.9)
[2017-02-06 13:37] LABS: Hematocrit 26.2 % (30.3-42.9); Hemoglobin 7.8 gm/dl (10.1-14.3); Mean Corpuscular HGB Conc 30 % (30-34); Mean Corpuscular Volume 72 fl (79-97); Platelet Count 479 K/mm3 (140-440); Red Blood Count 3.67 M/mm3 (3.65-5.03); White Blood Count 12.9 K/mm3 (4.5-11.0)
[2017-02-06 13:38] LABS: Mean Corpuscular Hemoglobin 21 pg (28-32); Red Cell Distribution Width 26.9 % (13.2-15.2)
[2017-02-06 13:45] LABS: Anion Gap 19 mmol/L; BUN/Creatinine Ratio 11.42; Blood Urea Nitrogen 8 mg/dL (7-17); Calcium 8.7 mg/dL (8.4-10.2); Carbon Dioxide 22 mmol/L (22-30); Chloride 100.8 mmol/L (98-107); Glucose 155 mg/dL (65-100); Potassium 3.8 mmol/L (3.6-5.0); Sodium 138 mmol/L (137-145)
[2017-02-06 14:39] LABS: Anisocytosis 2+; Blastocytes % (Manual) 0 %; Microcytosis 1+; Poikilocytosis 1+
[2017-02-06 14:40] LABS: Diff Status Complete; Elliptocytes 1+; Hypochromasia 2+; Ovalocytes 1+; Polychromasia 1+; Stomatocytes Few; Tear Drop Cells Rare
--- NOTE | 2017-02-10 17:56 | Admit Criteria Form ---
Admission Criteria Documentation: AMBULATORY SURGERY EXCEPTION CRITERIA Ambulatory Surgery Exception Criteria ( Place 'X' for any and all applicable criteria): Surgery or procedure performed on ambulatory basis may require inpatient stay for[A] ANY ONE of the following(1)(2)(3)(4)(5)(6)(7)(8)(9): [X] I. A preoperative situation, condition, or finding that warrants inpatient stay as indicated by ANY ONE of the following: [] a) Inpatient care needed because of severity of a disease or condition rather than the surgery (eg, severe cardiac or respiratory disease, severe infection) (15) (16 ) (17) (18) [] b) Emergent procedure (eg, angioplasty for acute ischemia)(19) [] c) Complex surgical approach or situation as indicated by ANY ONE of the following(3): [] i) Open approach needed instead of usual endoscopic, transcatheter, or other less invasive procedure [] ii) Difficult approach because of previous operation [] iii) Airway monitoring required after open neck procedures(20)(21) [] iv) Large mass requiring unusually extensive dissection [] v) Additional complicating feature requiring inpatient care (eg, drain management)(22(23): [X] d) Major surgery in a pt with high anesthetic risk as indicated by ANY ONE of the following (2)(3)(5)(7)(8): [X] i) ASA risk class III or higher (severe systemic disease impairing function) [D] [] ii) Advanced age (eg, older than 85 years)(14)(24) [] iii) Symptomatic heart failure(25) [] iv) Symptomatic asthma or COPD(8)(21) [] v) Morbid obesity with hemodynamic or respiratory problems(20)( 21)(26)(27) [] vi) Obstructive sleep apnea(20)(21) [] vii) Former premature infants who are younger than 60 weeks [] viii) High risk for severe postoperative abnormalities (eg, severe postoperative hypocalcemia after parathyroidectomy for severe hyperparathyroidism)(27)( 28) [] ix) Unstable angina(25) [] e) Drug-related risk requiring inpatient stay as indicated by ANY ONE of the following(5)(10)(14)(32)(33) [] i) Procedure requires discontinuing drugs or other therapy (eg , antiarrhythmic medication, antiseizure medication), which necessitates inpatient observation or treatment.(18)(31) [] ii) Major surgery and high risk drug use as indicated by ANY ONE of the following: [] 1) Active abuse of cocaine or similar drug [] 2) Monoamine oxidase inhibitor use [] 3) Other drug identified as posing risk [] f) Inadequate outpatient care situation as indicated by ANY ONE of the following(5)(10)(14)(32)(33) [] i) Patient lives remote from medical facility and procedure has urgent complication potential, and temporary nearby residence cannot be arranged [] ii) Patient will have postprocedure incapacitation and inadequate assistance at home, or alternative level of care cannot be arranged. [] iii) Patient will have long general anesthesia or procedure side effect resolution time, and competent person to stay with patient on first postoperative night at home or alternative level of care cannot be arranged. []iv) Other inadequate outpatient situation that cannot be handled by other means [] II. A perioperative event, condition, or finding that warrants inpatient stay as indicated by ANY ONE of the following (1)(2)(3): [] a) Inadequate physiologic recovery: cardiovascular, respiratory, or hemodynamic status not normal or near preoperative baseline(18) [] b) Hemodynamic instability [] c) Patient not alert with near normal or baseline mental status [] d) Temperature not normal or as expected and not appropriate for outpatient treatment of condition [] e) Ambulatory or appropriate activity level status not yet achieved post procedure [E](34)(35)(36) [] f) Operative site not appropriate (eg, unexpected or excessive drainage or bleeding) [] g) Postoperative effects not resolved or adequately managed (eg, significant pain or vomiting not appropriate for outpatient or next level of care)(10)(12) [] h) Complicating features requiring inpatient care as indicated by ANY ONE of the following(37): [] i) Severe complications of procedure (eg, bowel injury, airway compromise, vascular injury,severe hemorrhage) [] ii) Extensive (eg, dissection far beyond usual scope of procedure ) or prolonged (eg, 120 minutes beyond usual) surgery needed requiring inpatient postoperative care [] iii) Conversion to an open or complex procedure that requires inpatient care (eg, open vs laparoscopic cholecystectomy, abdominal vs vaginal hysterectomy)(38) [] iv) Comorbid condition or test result identified during or post procedure that requires inpatient care (7) [] v) Malignant hyperthermia(30) [] vi) Other complicating feature requiring inpatient care(22)(23) Inpatient stay may be needed until ALL of the following are present (1)(2)(3)(4) (5)(6)(10)(14)(33)(40): []a) Physiologic recovery: cardiovascular, respiratory, and hemodynamic status normal or near preoperative baseline []b) Hemodynamic stability []c) Patient alert, with near normal or baseline mental status []d) Temperature appropriate: patient afebrile or temperature appropriate for outpt treatment of condition []e) Activity level appropriate: ambulatory or appropriate activity level post procedure []f) Operative site appropriate as indicated by ALL of the following: []i) Site dry or with expected drainage []ii) Any blood noted is as expected for procedure. []g) Postoperative effects resolved or managed as indicated by ALL of the following: []i) Pain management appropriate for outpatient (or next level of) care(10) []ii) Minimal nausea and vomiting: if present, successfully treated with oral medication(12) []iii) Headache, dizziness, or drowsiness (if present) are mild. []h) Voiding status acceptable as indicated by ANY ONE of the following: []i) Voiding spontaneously []ii) No voiding but instructions given for follow-up in 6 to 8 hours []iii) Urinary catheter in place, and instructions given for follow-up []i) Complicating features requiring inpatient care manageable at a lower level of care(37) []j) Comorbid conditions manageable at a lower level of care(37) The original [employer] content created by [employer] has been revised. The portions of the content which have been revised are identified through the use of italic text or in bold, and [facility] [facility] has neither reviewed nor approved the modified material. All other unmodified content is copyright [employer]. Please see references footnoted in the original [employer] edition 2016 Admission Criteria Met: Yes
[~2017-02-11 08:58] MED LIST: MARCAINE 0.5% INFILTRATI NR; NACL 0.9% 1000 ML 1,000 ML IV SCH; NACL 0.9% 500 ML 500 ML IV SCH; NACL P/F VIAL (10 ML) INFILTRATI NR; PEPCID IV NR; SUBLIMAZE IV NR; VERSED IV NR; XYLOCAINE 1% 20 mL INFILTRATI NR
[2017-02-11] MEDS ORDERED: TYLENOL PO NR (09:21)
[2017-02-11] MEDS ORDERED: BENADRYL IV NR (09:21)
[2017-02-11] MEDS ORDERED: XYLOCAINE MPF 2% ONE (11:49)
[2017-02-11] MEDS ORDERED: DIPRIVAN 10 MG/ML IV ONE (11:50)
[2017-02-11] MEDS ORDERED: ZEMURON IV ONE ×2 (11:50→15:02)
[2017-02-11] MEDS ORDERED: DILAUDID ONE ×2 (11:50→16:41)
[2017-02-11] MEDS ORDERED: NEOSPORIN GU IR ONE ×2 (12:09→13:14)
--- NOTE | 2017-02-11 12:25 | Anesthesia Day of Surgery ---
Anesthesia Day of Surgery - Day of Surgery Patient Examined: Yes Patient H&P Reviewed: Yes Patient is NPO: Yes
--- NOTE | 2017-02-11 12:39 | History and Physical Report ---
History of Present Illness Date of examination: 02/11/17 Chief complaint: Symptomatic fibroid uterus History of present illness: Pt is a 41 yo BF LMP 01/29/17 presents for surgical evaluation and treatment of her fibroid uterus. She also has significant menometrorrhagia requiring 3 blood transfusions in the past - last time 01/14/17. Pelvic u/s showed an enlarged uterus 12.28 x 7.54 x 9.25cm with a large 5.64 x 4.22cm submucosal fibroid. She is therefore schedule for a Robotic Assisted Total Hysterectomy with Ovarian conservation. Her H/H today is 7.8/26.2 and she is currently being transfused 2 units of blood pre-operatively. Past History Past Medical History: hypertension, blood transfusion, other (anemia) Past Surgical History: [employer]/uterine surgery (BTL), section (x3) [employer] History: fibroids Family/Genetic History: none Social history: no significant social history, Medications and Allergies Allergies Allergy/AdvReac Type Severity Reaction Status Date / Time No Known Allergies Allergy Verified 02/05/17 10:20 Home Medications Medication Instructions Recorded Confirmed Last Taken Type Hydrochlorothiazide [HCTZ] 25 mg PO QDAY #30 tablet 12/05/16 02/11/17 02/10/17 Rx Ferrous Sulfate [Feosol 325 MG tab] 325 mg PO DAILY 02/05/17 02/11/17 02/08/17 History diphenhydrAMINE [Benadryl CAP] 200 mg PO HS 02/11/17 02/11/17 02/10/17 History Active Meds: Active Medications Acetaminophen (Tylenol) 650 mg PO ONCE NR Stop: 02/11/17 18:00 Last Admin: 02/11/17 09:45 Dose: 650 mg Bupivacaine HCl (Marcaine 0.5%) 20 ml INFILTRATI PREOP NR Stop: 02/11/17 23:59 Diphenhydramine HCl (Benadryl) 25 mg IV ONCE NR Stop: 02/11/17 18:00 Last Admin: 02/11/17 09:45 Dose: 25 mg Famotidine (Pepcid) 20 mg IV PREOP NR Stop: 02/11/17 23:59 Last Admin: 02/11/17 09:47 Dose: 20 mg Fentanyl (Sublimaze) 100 mcg IV ONCE NR Stop: 02/11/17 23:59 Sodium Chloride (Nacl 0.9% 1000 Ml) 1,000 mls @ 100 mls/hr IV DIRECT KIRAN Last Admin: 02/11/17 09:44 Dose: 100 mls/hr Sodium Chloride (Nacl 0.9% 500 Ml) 500 mls @ 0 mls/hr IV ONCE KIRAN PRN Reason: As Directed Stop: 02/11/17 23:00 Cefazolin Sodium (Ancef/Sterile Water 2 Gm/20 Ml) 2 gm in 20 mls @ 80 mls/hr IV PREOP KIRAN PRN Reason: Protocol Lidocaine (Xylocaine 1% 20 Ml) 10 ml INFILTRATI PREOP NR Stop: 02/11/17 23:59 Midazolam HCl (Versed) 2 mg IV PREOP NR Stop: 02/11/17 23:59 Sodium Chloride (Nacl P/F Vial (10 Ml)) 1 ml INFILTRATI PREOP NR Stop: 02/11/17 23:59 Review of Systems All systems: negative - Vital Signs Vital signs: Vital Signs Temp Pulse Resp BP 97.8 F 88 16 160/84 02/06/17 13:05 02/06/17 13:05 02/06/17 13:05 02/06/17 13:05 Temp Pulse Resp BP Pulse Ox 98.6 F 91 H 15 161/94 99 02/11/17 12:23 02/11/17 12:23 02/11/17 12:23 02/11/17 12:23 02/11/17 12:23 - Physical Exam Breasts: Positive: deferred Cardiovascular: Regular rate Lungs: Positive: Clear to auscultation Abdomen: Positive: normal appearance, soft Genitourinary (Female): Positive: normal external genitalia Uterus: Positive: enlarged Extremities: Positive: normal Results Result Diagrams: 02/06/17 13:10 02/06/17 13:10 Abnormal lab results 02/11/17 Range/Units 09:15 Crossmatch See Detail All other labs normal. Ultrasound: report reviewed Assessment and Plan - Patient Problems (1) Menometrorrhagia Onset Date: 02/11/17 Current Visit: Yes Status: Chronic (2) Uterine fibroid Onset Date: 02/11/17 Current Visit: No Status: Acute Qualifiers: Uterine leiomyoma location: submucous Qualified Code(s): D25.0 - Submucous leiomyoma of uterus Plan to address problem: A: Symptomatic fibroid uterus - with a large submucosal fibroid Menometrorrhagia - due to fibroids Anemia - due to menometrorrhagia P: Admit for a Robotic Assisted Total Hysterectomy with Bilateral Salpingectomy Continue with Pre-Op blood transfusion (3) HTN (hypertension), benign Onset Date: 02/11/17 Current Visit: No Status: Chronic
[2017-02-11] MEDS ORDERED: ANCEF/STERILE WATER 2 GM/20 ML 2 GM/20 ML SYRINGE IV SCH (13:00)
[2017-02-11] MEDS ORDERED: NACL 0.9% IR ONE (13:14)
[2017-02-11] MEDS ORDERED: ANCEF ONE (13:45)
[2017-02-11] MEDS ORDERED: BREVIBLOC IV ONE (14:00)
[2017-02-11] MEDS ORDERED: ePHEDrine SULFATE ONE (14:09)
[2017-02-11] MEDS ORDERED: MARCAINE-EPI 0.25%-1:200,000 INFILTRATI ONE ×2 (14:28→16:04)
[2017-02-11] MEDS ORDERED: ROBINUL ONE ×2 (14:56→15:03)
[2017-02-11] MEDS ORDERED: TORADOL ONE (14:56)
[2017-02-11] MEDS ORDERED: NEOSTIGMINE ONE (14:56)
[2017-02-11] MEDS ORDERED: ZOFRAN ONE ×3 (14:56→18:12)
--- NOTE | 2017-02-11 16:24 | Operative Report ---
Operative Report Operative Report: Date of procedure: 02/11/2017 Pre-operative diagnosis: 1. Symptomatic fibroid uterus 2. Menometrorrhagia 3. Anemia Post-operative diagnosis: Same with left ovarian cysts and omental adhesions to the anterior abdominal wall Procedure name(s): 1. Robotic-assisted total hysterectomy 2. Bilateral salpingectomy 3. Left ovarian cystectomy 4. Lysis of pelvic adhesions Surgeon: Tom Skaggs MD Yarder Puncher: Leonie Fernandez environmental assistant Anesthesia: General endotracheal intubation by Dr. Marie EBL: Less than 100 mL's Findings: A 14-16 week size multi-myomatous uterus. Tubes showed evidence of previous tubal ligation bilaterally. A multicystic left ovary and normal right ovary. Omental adhesions to the anterior abdominal wall. Procedure: After the patient's first correctly identified she was prepped and draped in the usual sterile fashion and placed in the dorsolithotomy position. The bladder was first catheterized using Hawthorne catheter and the speculum was placed in the vagina and the anterior lip of the cervix was grasped using a single-tooth tenaculum, and the medium Vesicare cup was placed. The tenaculum and speculum was then removed from the vagina and attention was then turned to the abdomen. The skin knife was used to make a small incision approximately 5 cm above the umbilicus through which a 12 mm trocar was placed under direct visualization. After adequate amount of abdominal insufflation visualization of the pelvic organs found the uterus to be enlarged and the tubes and ovaries were found to be normal bilaterally. A right lateral incision was made through which a 5 mm trocar was placed under direct visualization. A right and left paramedian incision was made through which the 8 mm trochars were placed under direct visualization. The patient was then placed in steep Trendelenburg positioning and the robot was docked on the patient's left side. After all the robotic ports were connected and adequate functioning of the robotic arms were tested the surgeon then proceeded to the console to begin the hysterectomy. First the left round ligament was grasped, cauterized and cut, the left utero- ovarian ligaments were grasped, cauterized and cut, and the left fallopian tube also grasped, cauterized and cut along the mesosalpinx thus freeing the left ovary from the left uterine sidewall. 2 left ovarian cysts were excised and the cyst florez sent to pathology. The same procedure was performed on the right. The right round ligament was grasped, cauterized and cut, the right utero-ovarian ligaments were grasped, cauterized and cut, and the right fallopian tube also grasped, cauterized and cut along the mesosalpinx thus freeing the right ovary from the right uterine sidewall. The bladder flap was taken down anteriorly and the uterine vessels were grasped, cauterized and cut bilaterally. The cardinal ligaments were sequentially grasped, cauterized and cut down to the level of the uterosacral ligaments. At this time the posterior colpotomy was performed over the Vcare cup, and the cervix was circumscribed beginning posteriorly and meeting anteriorly until the cervix was freed. The cervix, uterus and fallopian tubes was then removed through the vagina and sent to pathology. The vaginal cuff was then closed using 2-0 Vloc suture in a running fashion. Irrigation was then performed and after good hemostasis was achieved the procedure was considered complete. The Tisseel sealant was then sprayed across the vaginal cuff site, and after excellent hemostasis was assured Interceed was placed across the vaginal cuff site. All instruments were then removed from the abdominal cavity. The supraumbilical incision was closed using 0 Vicryl suture that was placed using the Mick-Zan device in a [id number] configuration on the fascia followed by 4-0 Monocryl suture in a subcuticular fashion on the skin. Each incision was closed using 0 Vicryl suture, and infiltrated using 0.5% Marcaine solution. The vaginal pack was removed, and the vaginal laceration was repaired using 3-0 Vicryl suture in a [id number] configuration. The patient tolerated the procedure well and was transported to the recovery room in stable condition.
[2017-02-11] MEDS ORDERED: PHENERGAN PR PRN (16:25)
[2017-02-11] MEDS ORDERED: NARCAN 0.4 MG/1 ML IV PRN ×2 (16:25)
[2017-02-11] MEDS ORDERED: MILK OF MAGNESIA PO PRN (16:25)
[2017-02-11] MEDS ORDERED: PERCOCET 5/325 PO PRN (16:25)
[2017-02-11] MEDS ORDERED: ZOFRAN IV PRN (16:25)
[2017-02-11] MEDS ORDERED: NORCO 5/325 PO PRN (16:25)
[2017-02-11] MEDS: DILAUDID IV PRN ×3 (16:35→17:31)
[2017-02-11] MEDS: MORPHINE PCA 30MG/30ML IV SCH (16:46)
[2017-02-11] MEDS ORDERED: NACL 0.9% 1000 ML 1,000 ML IV SCH (17:00)
[2017-02-11] MEDS ORDERED: D5LR 1,000 ML IV SCH (17:00)
[2017-02-11] MEDS ORDERED: LOPRESSOR IV ONE ×2 (17:04→17:26)
--- NOTE | 2017-02-11 17:08 | Post Anesthesia Evaluation ---
- Post Anesthesia Evaluation Patient Participated: Yes Airway Patent: Yes Stable Respiratory Function: Yes Temp > 96.8F: Yes Pain Manageable: Yes Adequeate Hydration: Yes Anesthesia Complications: No Block Receding Appropriately: Not Applicable
[2017-02-11] MEDS ORDERED: LOPRESSOR PO SCH (17:56)
[2017-02-11] MEDS: TORADOL IV SCH (20:37)
[2017-02-11] MEDS ORDERED: COLACE PO SCH (22:00)
[2017-02-11] MEDS ORDERED: ANCEF/NS 1 GM/50 ML 1 GM/50 ML BAG IV SCH (22:00)
[2017-02-12] MEDS: TORADOL IV SCH ×2 (02:14→08:19)
[2017-02-12 03:52] LABS: Hematocrit 30.4 % (30.3-42.9)
[2017-02-12] MEDS ORDERED: ANCEF/NS 1 GM/50 ML 1 GM/50 ML BAG IV SCH (05:30)
[2017-02-12] MEDS: MORPHINE PCA 30MG/30ML IV SCH (06:02)
--- NOTE | 2017-02-12 07:19 | Progress Note ---
Assessment and Plan - Patient Problems (1) Menometrorrhagia Onset Date: 02/11/17 Current Visit: Yes Status: Resolved (2) Uterine fibroid Onset Date: 02/11/17 Current Visit: No Status: Resolved Qualifiers: Uterine leiomyoma location: submucous Qualified Code(s): D25.0 - Submucous leiomyoma of uterus (3) HTN (hypertension), benign Onset Date: 02/11/17 Current Visit: No Status: Chronic (4) Status post robot-assisted surgical procedure Onset Date: 02/12/17 Current Visit: Yes Status: Acute Plan to address problem: A: S/P RATH with bilateral salpingectomy - POD #1 Doing well P: Continue RPOC Anticipate discharge to home this afternoon. Subjective - Subjective Date of service: 02/12/17 Principal diagnosis: S/P RATH with Bilateral salpingectomy - POD#1 Interval history: Pt is feeling well without complaints. She has not had a liquid diet yet. No flatus. Patient reports: appetite normal, voiding normally, pain well controlled, ambulating normally, no flatus Objective - Vital Signs Latest vital signs: Vital Signs Temp Pulse Pulse Resp BP BP Pulse Ox 02/12/17 05:44 98.5 F 90 20 121/67 02/12/17 00:00 98.2 F 76 20 146/77 02/11/17 20:05 98.2 F 86 20 140/78 02/11/17 18:30 97.1 F L 87 92 H 12 146/87 150/80 98 02/11/17 18:00 87 14 160/86 99 02/11/17 17:45 80 14 155/77 99 02/11/17 17:31 20 02/11/17 17:30 70 18 167/98 99 02/11/17 17:23 95 H 163/100 02/11/17 17:15 91 H 18 167/100 99 02/11/17 17:00 93 H 18 163/100 99 02/11/17 16:50 92 H 18 168/104 99 02/11/17 16:45 87 24 172/97 100 02/11/17 16:40 82 24 157/96 99 02/11/17 16:35 83 28 H 159/95 99 02/11/17 16:30 97.3 F L 94 H 18 157/95 98 02/11/17 12:23 98.6 F 91 H 15 161/94 99 02/11/17 11:56 98.2 F 83 14 158/92 100 02/11/17 11:41 98.8 F 80 15 154/90 99 02/11/17 11:30 98.8 F 79 19 141/90 98 02/11/17 11:00 98.3 F 72 15 143/85 98 02/11/17 10:45 98.3 F 78 15 138/68 100 02/11/17 10:08 99.2 F 106 H 18 146/77 98 02/11/17 09:10 99.2 F 106 H 18 146/77 98 Intake and Output 02/11/17 02/12/17 02/12/17 22:59 06:59 14:59 Intake Total 475 240 Output Total 870 1400 Balance -395 -1160 Intake: IV 475 Right Hand 125 Oral 240 Output: Urine 870 1400 Indwelling Catheter 1400 Uretheral ([place]) 375 Other: Total, Intake Amount 240 Total, Output Amount 600 Voiding Method Indwelling Catheter - Exam Cardiovascular: Present: Regular rate Lungs: Present: Clear to auscultation Abdomen: Present: normal appearance, soft Extremities: Present: normal Incision: Present: normal, dry, intact - Labs Labs: Abnormal lab results 02/11/17 02/12/17 Range/Units 09:15 02:53 Hgb 9.0 L (10.1-14.3) gm/dl Crossmatch See Detail Laboratory Tests 02/06/17 02/06/17 02/06/17 13:10 13:10 13:10 WBC 12.9 H RBC 3.67 Hgb 7.8 L Hct 26.2 L MCV 72 L MCH 21 L MCHC 30 RDW 26.9 H Plt Count 479 H Add Manual Diff Complete Total Counted 100 Seg Neuts % (Manual) 80.0 H Band Neutrophils % 1.0 Lymphocytes % (Manual) 15.0 Reactive Lymphs % (Man) 0 Monocytes % (Manual) 1.0 Eosinophils % (Manual) 2.0 Basophils % (Manual) 1.0 Metamyelocytes % 0 Myelocytes % 0 Promyelocytes % 0 Blast Cells % 0 Nucleated RBC % 3.0 H Seg Neutrophils # Man 10.3 H Band Neutrophils # 0.1 Lymphocytes # (Manual) 1.9 Abs React Lymphs (Man) 0.0 Monocytes # (Manual) 0.1 Eosinophils # (Manual) 0.3 Basophils # (Manual) 0.1 Metamyelocytes # 0.0 Myelocytes # 0.0 Promyelocytes # 0.0 Blast Cells # 0.0 WBC Morphology Not Reportable Hypersegmented Neuts Not Reportable Hyposegmented Neuts Not Reportable Hypogranular Neuts Not Reportable Smudge Cells Not Reportable Toxic Granulation Not Reportable Toxic Vacuolation Not Reportable Dohle Bodies Not Reportable Pelger-Huet Anomaly Not Reportable Jefry Rods Not Reportable Platelet Estimate Appears normal Clumped Platelets Not Reportable Plt Clumps, EDTA Not Reportable Large Platelets Not Reportable Giant Platelets Not Reportable Platelet Satelliting Not Reportable Plt Morphology Comment Not Reportable RBC Morphology Not Reportable Dimorphic RBCs Not Reportable Polychromasia 1+ Hypochromasia 2+ Poikilocytosis 1+ Anisocytosis 2+ Microcytosis 1+ Macrocytosis Not Reportable Spherocytes Not Reportable Pappenheimer Bodies Not Reportable Sickle Cells Not Reportable Target Cells Not Reportable Tear Drop Cells Rare Ovalocytes 1+ Stomatocytes Few Helmet Cells Not Reportable Engel-Lostant Bodies Not Reportable Coin Rings Not Reportable Kiesha Cells Not Reportable Bite Cells Not Reportable Crenated Cell Not Reportable Elliptocytes 1+ Acanthocytes (Spur) Not Reportable Rouleaux Not Reportable Hemoglobin C Crystals Not Reportable Schistocytes Not Reportable Malaria parasites Not Reportable Hans Bodies Not Reportable Hem Pathologist Commnt No Sodium 138 Potassium 3.8 Chloride 100.8 Carbon Dioxide 22 Anion Gap 19 BUN 8 Creatinine 0.7 Estimated GFR > 60 BUN/Creatinine Ratio 11.42 Glucose 155 H Calcium 8.7 HCG, Qual Negative Blood Type Antibody Screen KAVITA Antibody Screen Crossmatch 02/11/17 02/12/17 09:15 02:53 WBC RBC Hgb 9.0 L Hct 30.4 MCV MCH MCHC RDW Plt Count Add Manual Diff Total Counted Seg Neuts % (Manual) Band Neutrophils % Lymphocytes % (Manual) Reactive Lymphs % (Man) Monocytes % (Manual) Eosinophils % (Manual) Basophils % (Manual) Metamyelocytes % Myelocytes % Promyelocytes % Blast Cells % Nucleated RBC % Seg Neutrophils # Man Band Neutrophils # Lymphocytes # (Manual) Abs React Lymphs (Man) Monocytes # (Manual) Eosinophils # (Manual) Basophils # (Manual) Metamyelocytes # Myelocytes # Promyelocytes # Blast Cells # WBC Morphology Hypersegmented Neuts Hyposegmented Neuts Hypogranular Neuts Smudge Cells Toxic Granulation Toxic Vacuolation Dohle Bodies Pelger-Huet Anomaly Jefry Rods Platelet Estimate Clumped Platelets Plt Clumps, EDTA Large Platelets Giant Platelets Platelet Satelliting Plt Morphology Comment RBC Morphology Dimorphic RBCs Polychromasia Hypochromasia Poikilocytosis Anisocytosis Microcytosis Macrocytosis Spherocytes Pappenheimer Bodies Sickle Cells Target Cells Tear Drop Cells Ovalocytes Stomatocytes Helmet Cells Engel-Lostant Bodies Coin Rings Kiesha Cells Bite Cells Crenated Cell Elliptocytes Acanthocytes (Spur) Rouleaux Hemoglobin C Crystals Schistocytes Malaria parasites Hans Bodies Hem Pathologist Commnt Sodium Potassium Chloride Carbon Dioxide Anion Gap BUN Creatinine Estimated GFR BUN/Creatinine Ratio Glucose Calcium HCG, Qual Blood Type O POSITIVE Antibody Screen Not Reportable KAVITA Antibody Screen Negative Crossmatch See Detail
--- NOTE | 2017-02-12 14:27 | Discharge Summary ---
Providers - Providers Date of Admission: 02/11/17 16:26 Date of discharge: 02/12/17 Attending physician: MEL PADRON Primary care physician: AUDIO VISUAL TECH Hospitalization Reason for admission: other (Symptomatic fibroid uterus; Menometrorrhagia; Anemia) Procedure: other (Robotic Assisted Total Hysterectomy with Bilateral Salpingectomy; Left ovarian cystectomy) Episiotomy: none Laceration: none Incision: normal, dry, intact Other procedures: none complications: none Discharge diagnosis: other (S/P RATH with Bilateral Salpingectomy and Left ovarian cystectomy) Hospital course: Pt is a 41 yo BF LMP 01/29/17 who presented for surgical evaluation and treatment of her fibroid uterus. She also had significant menometrorrhagia requiring 3 blood transfusions in the past - last time 01/14/17, and pelvic u/s showed an enlarged uterus 12.28 x 7.54 x 9.25cm with a large 5.64 x 4.22cm submucosal fibroid. She underwent an uncomplicated Robotic Assisted Total Hysterectomy with Bilateral salpingectomy and Left ovarian cystectomy. By POD #1 she was tolerating a reg diet without nausea or vomiting, ambulating and voiding without difficulty, and therefore was discharged to home in stable condition. Her H/H improved from 7.8/26.2 to 9.0/30.4 post transfusion. Condition at discharge: Good Disposition: DISCHARGED TO HOME OR SELFCARE - Discharge Diagnoses (1) Menometrorrhagia Status: Resolved (2) Uterine fibroid Status: Resolved Qualifiers: Uterine leiomyoma location: submucous Qualified Code(s): D25.0 - Submucous leiomyoma of uterus (3) HTN (hypertension), benign Status: Chronic (4) Status post robot-assisted surgical procedure Status: Resolved Plan - Discharge Medications Prescriptions: Ferrous Sulfate [Feosol 325 MG tab] 325 mg PO DAILY #60 tablet HYDROcodone/APAP 5-325 [Everett 5-325 mg TAB] 1 each PO Q6HR PRN #30 tablet PRN Reason: Pain, Moderate (4-6) Ibuprofen [Motrin] 800 mg PO Q8HR PRN #30 tablet PRN Reason: Moder Pain Unrelieved By Everett - Provider Discharge Summary Activity: routine, no sex for 6 weeks, no heavy lifting 4 weeks, no strenuous exercise Diet: routine Instructions: routine Additional instructions: [] Smoking cessation referral if applicable(refer to patient education folder for contact #) [] Refer to [facility] Booklet Call your doctor immediately for: * Fever > 100.5 * Heavy vaginal bleeding ( >1 pad per hour) * Severe persistent headache * Shortness of breath * Reddened, hot, painful area to leg or breast * Drainage or odor from incision. * Keep incision clean and dry at all times and follow doctor's instructions regarding bathing/showering - Follow up plan Follow up: PRIMARY CAREMD [Primary Care Provider] - 7 Days MEL PADRON MD [Staff Physician] - 14 Days
[2017-02-12] MEDS ORDERED: PERCOCET 5/325 PO PRN (14:30)
[2017-02-12 16:01] VITALS: BP 168/82
[2017-02-13] MEDS ORDERED: LOPRESSOR PO SCH (17:26)
== END 2017-02-12 17:00 | disposition home or self-care (01) | DRG 743 ==
LOC: OR 08:58 → OB 16:26
PROVIDERS: ADMIT Obstetrics & Gynecology; ATTEND Obstetrics & Gynecology
PROC: 0UT94ZZ Resection of Uterus, Percutaneous Endoscopic Approach (ICD-10-PCS; principal; 2017-02-11)
PROC: 0UTC4ZZ Resection of Cervix, Percutaneous Endoscopic Approach (ICD-10-PCS; 2017-02-11)
PROC: 0UT74ZZ Resection of Bilateral Fallopian Tubes, Percutaneous Endoscopic Approach (ICD-10-PCS; 2017-02-11)
PROC: 0UB24ZZ Excision of Bilateral Ovaries, Percutaneous Endoscopic Approach (ICD-10-PCS; 2017-02-11)
PROC: 8E0W4CZ Robotic Assisted Procedure of Trunk Region, Percutaneous Endoscopic Approach (ICD-10-PCS; 2017-02-11)
PROC: 8E0W4CZ Robotic Assisted Procedure of Trunk Region, Percutaneous Endoscopic Approach (ICD-10-PCS; 2017-02-11)
PROC: 30233N1 Transfusion of Nonautologous Red Blood Cells into Peripheral Vein, Percutaneous Approach (ICD-10-PCS; 2017-02-11)
DX: D25.0 Submucous leiomyoma of uterus (principal); I10 Essential (primary) hypertension; D64.9 Anemia, unspecified; N92.1 Excessive and frequent menstruation with irregular cycle
CPT/HCPCS: 36415; 80048; 84703; 85007; 85014; 85018; 85025; 86850; 86900; 86901; 86920; 88304; 88305; 88307; C1765; C9250; J0690; J1170; J1200; J1885; J2250; J2270; J2405; J2704; J2710; J7030; J7121; P9016

== ENCOUNTER 2022-04-05 15:30 | Emergency (ER) | payer OTHER ==
[2022-04-05] MEDS ORDERED: ONDANSETRON 4 MG/2 ML INJ IV ONE (15:59)
[2022-04-05] MEDS ORDERED: SODIUM CHLORIDE 0.9% 1000 ML 1,000 ML IV ONE (15:59)
--- NOTE | 2022-04-05 16:05 | Emergency Department Report ---
HPI - General Chief Complaint: Weakness Time Seen by Provider: 04/05/22 15:53 - HPI HPI: Hallway 19 The patient is a 46-year-old female present with chief complaint of feeling hot and nausea. The patient states she was at work in her usual state of health until around 1330 when she says she began to feel overheated while at work. Patient states she developed nausea went to the bathroom and began vomiting. Patient states she felt weak so she went back to her desk to sit down. Patient states she began to get hot all over again and EMS was called. Patient complains of feeling dizzy with a slight headache at the calvarium. The patient states other people complaining of how hot it is in the office building as well and she is uncertain if the air conditioning was functioning or not. Patient denies history of cough or dysuria. ED Past Medical Hx - Past Medical History Hx Hypertension: Yes (x 10 yrs) Hx Arthritis: Yes (left knee) Hx Psychiatric Treatment: Yes (anxiety) Additional medical history: uterine fibroids, uterine cysts. anemia - Surgical History Additional Surgical History: x 3 - Family History Family history: no significant - Social History Smoking Status: Current Some Day Smoker (Black and milds) Substance Use Type: None (Denies illicit drug use), Alcohol (Occasional) - Medications Home Medications: Home Medications Medication Instructions Recorded Confirmed Last Taken Type hydroCHLOROthiazide [HCTZ] 25 mg PO QDAY #30 tablet 12/05/16 02/11/17 02/10/17 Rx diphenhydrAMINE [Benadryl CAP] 200 mg PO HS 02/11/17 02/11/17 02/10/17 History Ferrous Sulfate [Feosol 325 MG tab] 325 mg PO DAILY #60 tablet 02/12/17 Unknown Rx HYDROcodone/APAP 5-325 [Strong 1 each PO Q6HR PRN #30 tablet 02/12/17 Unknown Rx 5-325 mg TAB] Ibuprofen [Motrin] 800 mg PO Q8HR PRN #30 tablet 02/12/17 Unknown Rx Ondansetron [Zofran ODT TAB] 8 mg PO Q8HR #20 tab.rapdis 04/05/22 Unknown Rx Sulfamethoxazole/Trimethoprim 1 each PO BID #6 04/05/22 Unknown Rx [Bactrim DS TAB] ED Review of Systems ROS: Stated complaint: HEAT EXHAUSTION/WEAK/AFIB Other details as noted in HPI Constitutional: no symptoms reported Eyes: denies: eye pain ENT: denies: throat pain Respiratory: denies: cough, shortness of breath Cardiovascular: denies: chest pain Endocrine: no symptoms reported Gastrointestinal: nausea, vomiting Genitourinary: denies: dysuria Musculoskeletal: denies: back pain Neurological: headache Physical Exam - Physical Exam Vital Signs: Vital Signs 04/05/22 15:39 Temperature 97.9 F Pulse Rate 73 Respiratory 14 Rate Blood Pressure 168/105 [Left] O2 Sat by Pulse 97 Oximetry Physical Exam: GENERAL: The patient is well-developed well-nourished female lying on stretcher not appearing to be in acute distress. [] HEENT: Normocephalic. Atraumatic. Extraocular motions are intact. Patient has moist mucous membranes. There is no nystagmus NECK: Supple. Trachea midline CHEST/LUNGS: Clear to auscultation. There is no respiratory distress noted. HEART/CARDIOVASCULAR: Regular. There is no tachycardia. There is no gallop rub or murmur. ABDOMEN: Abdomen is soft, nontender. Patient has normal bowel sounds. There is no abdominal distention. SKIN: There is no rash. There is no edema. There is no diaphoresis. NEURO: The patient is awake, alert, and oriented. The patient is cooperative. The patient has no focal neurologic deficits. The patient has normal speech. Cranial nerves II through XII grossly intact. GCS 15. There is no nystagmus MUSCULOSKELETAL: There is no evidence of acute injury. ED Course Vital Signs 04/05/22 15:39 Temperature 97.9 F Pulse Rate 73 Respiratory 14 Rate Blood Pressure 168/105 [Left] O2 Sat by Pulse 97 Oximetry - Reevaluation(s) Reevaluation #1: 04/05/22 21:09 Patient states she feels improved ED Medical Decision Making - Lab Data Result diagrams: 04/05/22 16:59 04/05/22 16:59 - Radiology Data Radiology results: report reviewed (CT head), image reviewed (CT head) [facility] [address] [place] [address] Cat Scan Report Signed Patient: ERIC SANCHEZ MR#: [id number] : 1975 Acct:[id number] Age/Sex: 46 / F ADM Date: 04/05/22 Loc: ED Attending Dr: Ordering Physician: ROQUE WILKERSON MD Date of Service: 04/05/22 Procedure(s): CT head/brain wo con Accession Number(s): [id number] cc: ROQUE WILKERSON MD CT HEAD WITHOUT CONTRAST INDICATION / CLINICAL INFORMATION: Headache, nausea, dizziness. TECHNIQUE: All CT scans at this location are performed using CT dose reduction for ALARA by means of automated exposure control. COMPARISON: None available. FINDINGS: HEMORRHAGE: No evidence of intracranial hemorrhage or extra-axial fluid collection. EXTRA-AXIAL SPACES: Cortical sulci, sylvian fissures and basilar cisterns have an unremarkable appearance. VENTRICULAR SYSTEM: The third and lateral ventricles are of normal size and configuration. CEREBRAL PARENCHYMA: No areas of abnormal brain parenchymal attenuation are identified. There is no indication of recent infarction. MIDLINE SHIFT OR HERNIATION: There is no mass effect. CEREBELLUM / BRAINSTEM: Brainstem and cerebellum have an unremarkable appearance. MIDLINE STRUCTURES:No abnormalities of the pituitary gland or pineal region are identified. INTRACRANIAL VESSELS:No abnormalities are identified on this noncontrast head CT. ORBITS: visualized portions of the orbits have an unremarkable appearance. SOFT TISSUES of HEAD: No significant abnormality. CALVARIUM: Evaluation of bone windows reveals no abnormalities. PARANASAL SINUSES / MASTOID AIR CELLS: Frontal sinuses did not develop in this individual. Visualized portions of the paranasal sinuses are free from inflammatory mucosal disease. Mastoid air cells are normally pneumatized. IMPRESSION: 1. Normal head CT without contrast. Signer Name: Roberto Carlos Garner MD Signed: 04/05/2022 5:25 PM Workstation Name: [id number] Transcribed By: Dictated By: Roberto Carlos Garner MD Electronically Authenticated By: Roberto Carlos Garner MD Signed Date/Time: 04/05/221724 DD/ 22 TD/TT: - Differential Diagnosis Dehydration, overheated, electrolyte abnormality, ICH Critical care attestation.: If time is entered above; I have spent that time in minutes in the direct care of this critically ill patient, excluding procedure time. ED Disposition Clinical Impression: Near syncope, UTI (urinary tract infection) Disposition: 01 HOME / SELF CARE / HOMELESS Is pt being admited?: No Does the pt Need Aspirin: No Condition: Stable Additional Instructions: Return to the emergency department should you develop worsening symptoms, inability to tolerate food or liquids, high fever or any other concerns Prescriptions: Sulfamethoxazole/Trimethoprim [Bactrim DS TAB] 1 each PO BID #6 Ondansetron [Zofran ODT TAB] 8 mg PO Q8HR #20 tab.kate Referrals: [facility] [Provider Group] - 3-5 Days Time of Disposition: 21:07
--- NOTE | 2022-04-05 17:30 | Cat Scan Report ---
CT HEAD WITHOUT CONTRAST INDICATION / CLINICAL INFORMATION: Headache, nausea, dizziness. TECHNIQUE: All CT scans at this location are performed using CT dose reduction for ALARA by means of automated e xposure control. COMPARISON: None available. FINDINGS: HEMORRHAGE: No evidence of intracranial hemorrhage or extra-axial fluid collection. EXTRA-AXIAL SPACES: Cortical sulci, sylvian fissures and basilar cisterns have an unremarkable appear ance. VENTRICULAR SYSTEM: The third and lateral ventricles are of normal size and configuration. CEREBRAL PARENCHYMA: No areas of abnormal brain parenchymal attenuation are identified. There is no i ndication of recent infarction. MIDLINE SHIFT OR HERNIATION: There is no mass effect. CEREBELLUM / BRAINSTEM: Brainstem and cerebellum have an unremarkable appearance. MIDLINE STRUCTURES:No abnormalities of the pituitary gland or pineal region are identified. INTRACRANIAL VESSELS:No abnormalities are identified on this noncontrast head CT. ORBITS: visualized portions of the orbits have an unremarkable appearance. SOFT TISSUES of HEAD: No significant abnormality. CALVARIUM: Evaluation of bone windows reveals no abnormalities. PARANASAL SINUSES / MASTOID AIR CELLS: Frontal sinuses did not develop in this individual. Visualized portions of the paranasal sinuses are free from inflammatory mucosal disease. Mastoid air cells are normally pneumatized. IMPRESSION: 1. Normal head CT without contrast. Signer Name: Roberto Carlos Garner MD Signed: 04/05/2022 5:25 PM Workstation Name: [id number]
[2022-04-05] MEDS ORDERED: cloNIDine 0.2 MG TAB PO ONE (17:56)
[2022-04-05 18:37] LABS: Free T4 (Free Thyroxine) 1.05 ng/dL (0.76-1.46)
[2022-04-05 19:02] LABS: Creatine Kinase MB 3.1 ng/mL (0.0-4.0)
[2022-04-05 19:03] LABS: Alanine Aminotransferase 24 units/L (7-56); Albumin 3.9 g/dL (3.9-5); Blood Urea Nitrogen 11 mg/dL (7-17); Hemolysis Index 25
[2022-04-05 19:20] LABS: BUN/Creatinine Ratio 16; Calcium 9.2 mg/dL (8.4-10.2)
[2022-04-05 20:00] LABS: Bilirubin,Urine NEG (Negative); Blood,Urine MOD (Negative); Color,Urine Yellow (Yellow); Urobilinogen,Urine < 2.0 mg/dL (<2.0)
[2022-04-05 20:05] LABS: Bacteria,Urine 1+ /HPF (Negative); Mucus,Urine FEW /HPF
[2022-04-05 20:10] LABS: Hematocrit 38.5 % (30.3-42.9); Hemoglobin 12.7 gm/dl (10.1-14.3); Mean Corpuscular HGB Conc 33 % (30-34); Mean Corpuscular Volume 87 fl (79-97); Platelet Count 256 K/mm3 (140-440); Red Cell Distribution Width 15.4 % (13.2-15.2)
[2022-04-05 21:49] VITALS: BP 148/85
--- NOTE | 2022-04-06 11:23 | Electrocardiograph Report ---
[facility] Test Date: 2022-04-05 Test Time: 17:52:32 Pat Name: ERIC SANCHEZ Department: Room: Gender: F Home Health Rn: ER : 1975 Requested By: ROQUE WILKERSON Order Number: [id number] Reading MD: Gonzalez Sears Measurements Intervals Souris Rate: 75 P: 69 CO: 151 QRS: -4 QRSD: 83 T: 193 QT: 433 QTc: 483 Interpretive Statements Sinus rhythm Biatrial enlargement Probable LVH with secondary repol abnrm No previous ECG available for comparison Electronically Signed On 04-06-2022 11:23:07 EDT by Gonzalez Sears
== END 2022-04-05 21:40 | disposition home or self-care (01) ==
LOC: ED 15:30
DX: R11.0 Nausea (principal); R55 Syncope and collapse; N39.0 Urinary tract infection, site not specified; I10 Essential (primary) hypertension; M19.90 Unspecified osteoarthritis, unspecified site; F41.9 Anxiety disorder, unspecified; F17.200 Nicotine dependence, unspecified, uncomplicated
CPT/HCPCS: 36415; 70450; 80053; 81001; 82550; 82553; 83690; 84439; 84443; 84484; 85025; 87086; 93005; 96361; 96374; 99284; J2405; J7030